=== PATIENT | male | born 1980 | race Caucasian/White ===

== ENCOUNTER 2022-06-27 22:13 | Emergency (ER) | payer MEDICAID, OTHER ==
[~2022-06-27] VITALS: Ht 190.5 cm; Wt 72.7 kg
[2022-06-27 22:42] VITALS: BP 146/82
[2022-06-27] MEDS ORDERED: HYDROcodone-ACET 10/325MG TAB PO ONE (23:45)
[2022-06-28] MEDS ORDERED: TETANUS-DIPTH-ACEL PERTUSSIS 0.5ML SYR Tdap IM ONE (01:30)
[2022-06-28] MEDS ORDERED: CEPH-510 PO (01:31)
[2022-06-28] MEDS ORDERED: IBUP800T26 PO (01:31)
[2022-06-28] MEDS ORDERED: HYDR-4902 PO (01:31)
== END 2022-06-28 01:49 | disposition home or self-care (01) ==
LOC: ER 22:13
DX: S01.422A Laceration with foreign body of left cheek and temporomandibular area, initial encounter (principal); W45.8XXA Other foreign body or object entering through skin, initial encounter; Y93.89 Activity, other specified; Y92.89 Other specified places as the place of occurrence of the external cause; Y99.8 Other external cause status
CPT/HCPCS: 12013; 70450; 70486; 90471; 90715

== ENCOUNTER 2022-09-10 22:13 | Emergency (ER) | payer MEDICAID ==
[~2022-09-10] VITALS: Ht 182.9 cm; Wt 75.0 kg
[~2022-09-10 22:13] MED LIST: CEPH-510 PO; HYDR-4902 PO; IBUP-1455 PO
[2022-09-10 22:19] VITALS: BP 137/89; RESP 20; O2SAT 97
[2022-09-11 00:47] VITALS: PULSE 103
== END 2022-09-11 01:21 | disposition left against medical advice (07) ==
LOC: EDBD 22:13 → ER 22:16
DX: F41.9 Anxiety disorder, unspecified (principal); R94.31 Abnormal electrocardiogram [ECG] [EKG]; Z53.21 Procedure and treatment not carried out due to patient leaving prior to being seen by health care provider
CPT/HCPCS: 93005

== ENCOUNTER 2022-09-11 23:21 | Emergency (ER) | payer MEDICAID ==
[~2022-09-11] VITALS: Ht 175.3 cm; Wt 65.8 kg
[2022-09-11 23:37] VITALS: BP 144/90; PULSE 105; RESP 24; O2SAT 100
== END 2022-09-12 02:01 | disposition home or self-care (01) ==
LOC: EDBD 23:21 → ER 23:21
DX: K29.70 Gastritis, unspecified, without bleeding (principal); F15.90 Other stimulant use, unspecified, uncomplicated; Z79.899 Other long term (current) drug therapy; Z59.00 Homelessness unspecified
CPT/HCPCS: 71045; 74176

== ENCOUNTER 2022-12-20 11:24 | Emergency (ER) | payer MEDICAID ==
[~2022-12-20] VITALS: Ht 188 cm; Wt 73.9 kg
[2022-12-20 12:40] VITALS: BP 101/69; PULSE 103; RESP 18; TEMP 98.5; O2SAT 99
[2022-12-20] MEDS ORDERED: PHEN-922 PO ×2 (12:51)
[2022-12-20] MEDS ORDERED: BACDST PO ×2 (12:51)
[2022-12-20] MEDS ORDERED: IBUP-1456 PO (13:45)
[2022-12-20] MEDS ORDERED: IBUPROFEN 800 MG TAB PO ONE (13:45)
== END 2022-12-20 13:57 | disposition home or self-care (01) ==
LOC: ER 11:24
DX: S93.691A Other sprain of right foot, initial encounter (principal); S86.811A Strain of other muscle(s) and tendon(s) at lower leg level, right leg, initial encounter; F17.210 Nicotine dependence, cigarettes, uncomplicated; F15.90 Other stimulant use, unspecified, uncomplicated; Z79.899 Other long term (current) drug therapy; V89.9XXA Person injured in unspecified vehicle accident, initial encounter; Y93.89 Activity, other specified; Y92.89 Other specified places as the place of occurrence of the external cause; Y99.8 Other external cause status
CPT/HCPCS: 73590; 73630

== ENCOUNTER 2023-06-12 20:35 | Inpatient (IN) | payer MEDICAID ==
[~2023-06-12] VITALS: Ht 182.9 cm; Wt 72.0 kg
[~2023-06-12 20:35] MED LIST changes: +IBUP-1456 PO
[2023-06-12] MEDS: diphenhdrAMINE HCL 50 MG/1 ML VL IM ONE (21:31)
[2023-06-12] MEDS: HALOPERIDOL LACTATE 5 MG/ML INJ VIAL IM ONE (21:31)
[2023-06-12] MEDS: LORazepam 2MG/ML-1ML VIAL ONE ×2 (21:31→21:32)
[2023-06-12] MEDS: HALOPERIDOL LACTATE 5 MG/ML INJ VIAL ONE (21:31)
[2023-06-12] MEDS: LORazepam 2MG/ML-1ML VIAL IM ONE (21:31)
[2023-06-12] MEDS: diphenhdrAMINE HCL 50 MG/1 ML VL ONE ×2 (21:31→21:32)
[2023-06-12 21:36] VITALS: PULSE 105; RESP 20; O2SAT 95
[2023-06-12 22:26] LABS: Basophils # (auto) 0 10 ^3/uL (0-0.2); Basophils % (auto) 0.4 % (0.0-2.0); Eosinophils # (auto) 0 10 ^3/uL (0-0.8); Eosinophils % (auto) 0.3 % (0.0-7.0); Hematocrit 41.8 % (41.0-53.0); Hemoglobin 14.2 g/dL (13.5-17.5); Lymphocytes # (auto) 0.9 10 ^3/uL (0.4-5.4); Lymphocytes % (auto) 7.8 % (10.0-50.0); Mean Corpuscular Hemoglobin 29.4 pg (28.0-32.0); Mean Corpuscular Volume 86.6 fL (80.0-100.0); Monocytes # (auto) 1.2 10 ^3/uL (0-1.3); Monocytes % (auto) 10.5 % (0.0-12.0); Neutrophils # (auto) 9.6 10 ^3/uL (1.6-8.6); Nucleated Red Blood Cells % 0.1 %; Red Blood Cells 4.82 10^6/uL (4.5-5.90); Red Cell Distribution Width 13.8 % (11.8-14.3); White Blood Cell 11.9 10^3/uL (4.4-10.8)
[2023-06-12 22:36] LABS: Acetaminophen < 2.0 UG/ML (10.0-20.0)
[2023-06-12 22:52] LABS: Salicylate < 3.0 mg/dL (2.8-20.0)
[2023-06-12 23:33] LABS: Platelet Estimate Decreased
[2023-06-12 23:33] LABS: Chloride 107 mmol/L (98-107); Sodium 140 mmol/L (136-145)
[2023-06-12 23:36] LABS: Calcium 9.5 mg/dL (8.5-10.1)
[2023-06-12 23:41] LABS: Alkaline Phosphatase 88 U/L (46-116); Blood Alcohol < 3.0 mg/dL (<10); Glucose 99 mg/dL (74-106)
[2023-06-12 23:43] LABS: Aspartate Aminotransferase 67 U/L (13-40)
[2023-06-12 23:44] LABS: INR 1.04 (0.9-1.15); Partial Thromboplastin Time 23.6 SEC (24.5-34.5)
[2023-06-13 00:03] LABS: Alanine Aminotransferase 24 U/L (7-40); Albumin 4.5 g/dL (3.2-4.8); Anion Gap 9 (5-15); Bilirubin, Total 1.1 mg/dL (0.2-1.0); Blood Urea Nitrogen 18 mg/dL (9-23); Carbon Dioxide 24 mmol/L (20-30); Potassium 3.7 mmol/L (3.5-5.1); Total Protein 7.2 g/dL (5.7-8.2)
[2023-06-13 00:15] LABS: Lipase 37 U/L (12-53)
[2023-06-13] MEDS: LORazepam 2MG/ML-1ML VIAL IM ONE (01:17)
[2023-06-13] MEDS: diphenhdrAMINE HCL 50 MG/1 ML VL IM ONE (01:17)
[2023-06-13 03:48] LABS: Urine Bacteria None Seen /hpf (None Seen)
[2023-06-13 04:07] LABS: Amphetamine Screen, Urine Pos (NEGATIVE); Barbiturate Scree,Urine Neg (NEGATIVE); Benzodiazephine Screen, Urine Neg (NEGATIVE); Cannabinoid Screen, Urine Pos (NEGATIVE); Cocaine Screen, Urine Neg (NEGATIVE); Opiate Scree,Urine Neg (NEGATIVE); Phencyclidine Screen, Urine Neg (NEGATIVE)
[2023-06-13 04:19] LABS: Urine Blood Negative /uL (Negative); Urine Clarity Clear (Clear); Urine Color Yellow (Yellow); Urine Mucus FEW (None Seen); Urine Protein, UAD 1+ (Negative); Urine Specific Gravity 1.035 (1.001-1.035); Urine Urobilinogen Normal (Negative); Urine WBC 1 /hpf (0 - 3); Urine pH 5.5 (5.0-9.0)
[2023-06-13] MEDS ORDERED: LORazepam 2MG/ML-1ML VIAL IV PRN (05:45)
[2023-06-13] MEDS ORDERED: ONDANSETRON HCL 4 MG/2 ML VIAL IV PRN (05:45)
[2023-06-13] MEDS ORDERED: TEMAZEPAM 15 MG CAP PO PRN (05:45)
[2023-06-13 07:45] VITALS: PULSE 100; RESP 15; O2SAT 95
[2023-06-13 19:30] VITALS: PULSE 109; O2SAT 96
[2023-06-14 01:00] VITALS: BP 118/74; PULSE 66; RESP 20; TEMP 97.6; O2SAT 92
[2023-06-14 04:58] VITALS: BP 104/55; PULSE 90; RESP 18; TEMP 98; O2SAT 95
[2023-06-14 06:32] LABS: Anion Gap 6 (5-15); Carbon Dioxide 27 mmol/L (20-30); Chloride 105 mmol/L (98-107); Potassium 3.8 mmol/L (3.5-5.1); Sodium 138 mmol/L (136-145)
[2023-06-14 06:33] LABS: Calcium 9.5 mg/dL (8.7-10.4)
[2023-06-14 06:38] LABS: BUN/Creatinine Ratio 15.5 (10.0-20.0); Blood Urea Nitrogen 15 mg/dL (9-23); Glucose 91 mg/dL (74-106)
[2023-06-14 08:25] VITALS: PULSE 105; RESP 20; O2SAT 99
[2023-06-14 09:00] VITALS: BP 130/79; PULSE 105; RESP 20; TEMP 98.1; O2SAT 99
[2023-06-14 10:04] VITALS: BP 130/79; PULSE 105; RESP 20; TEMP 98.1; O2SAT 99
== END 2023-06-14 10:37 | disposition home or self-care (01) | DRG 812 ==
LOC: ER 20:35 → EDBD 20:35 → OVERFLOW 06-13 05:33 → CENTRAL 06-13 23:51
PROVIDERS: ADMIT Nurse Practitioner; ATTEND Family Medicine
DX: T50.991A Poisoning by other drugs, medicaments and biological substances, accidental (unintentional), initial encounter (principal); G92.9 Unspecified toxic encephalopathy; F15.10 Other stimulant abuse, uncomplicated; F17.210 Nicotine dependence, cigarettes, uncomplicated; F19.10 Other psychoactive substance abuse, uncomplicated; Z59.00 Homelessness unspecified; Y92.89 Other specified places as the place of occurrence of the external cause; Z79.899 Other long term (current) drug therapy
CPT/HCPCS: 36415; 70450; 71045; 80048; 80053; 80307; 80320; 80329; 81001; 83605; 83690; 84484; 85025; 85379; 85610; 85730; 87040; 93005; 96372; G0378

== ENCOUNTER 2023-06-22 23:32 | Emergency (ER) | payer MEDICAID | END 2023-06-22 23:40 | disposition left against medical advice (07) | LOC: ER 23:32 | DX: R07.89 Other chest pain (principal); Z53.21 Procedure and treatment not carried out due to patient leaving prior to being seen by health care provider ==

== ENCOUNTER 2023-06-24 14:39 | Emergency (ER) | payer MEDICAID ==
[~2023-06-24] VITALS: Ht 190.5 cm; Wt 75.8 kg
[2023-06-24 14:58] LABS: Urine Bacteria None Seen /hpf (None Seen); Urine WBC None Seen /hpf (0 - 3)
[2023-06-24] MEDS: SODIUM CHLORIDE 0.9% 1,000 ML IV ONE (15:13)
[2023-06-24] MEDS: LORazepam 2MG/ML-1ML VIAL IM ONE (15:13)
[2023-06-24 15:15] LABS: Urine Blood Negative /uL (Negative); Urine Clarity Clear (Clear); Urine Color Colorless (Yellow); Urine Protein, UAD Negative (Negative); Urine Specific Gravity 1.001 (1.001-1.035); Urine Urobilinogen Normal (Negative); Urine pH 6.5 (5.0-9.0)
[2023-06-24 15:38] VITALS: BP 103/84; PULSE 86; RESP 19; TEMP 98.2; O2SAT 98
[2023-06-24 15:40] LABS: Chloride 106 mmol/L (98-107); Potassium 3.1 mmol/L (3.5-5.1); Sodium 139 mmol/L (136-145)
[2023-06-24 15:41] LABS: Anion Gap 11 (5-15); Carbon Dioxide 22 mmol/L (20-30)
[2023-06-24 15:42] LABS: Calcium 10.4 mg/dL (8.7-10.4)
[2023-06-24 15:42] LABS: Basophils # (auto) 0 10 ^3/uL (0-0.2); Basophils % (auto) 0.4 % (0.0-2.0); Eosinophils # (auto) 0 10 ^3/uL (0-0.8); Eosinophils % (auto) 0.2 % (0.0-7.0); Hematocrit 47.5 % (41.0-53.0); Lymphocytes # (auto) 1.7 10 ^3/uL (0.4-5.4); Lymphocytes % (auto) 15.8 % (10.0-50.0); Mean Corpuscular Hemoglobin 29.3 pg (28.0-32.0); Mean Corpuscular Hgb Conc. 33.6 g/dL (32.0-36.0); Mean Corpuscular Volume 87.1 fL (80.0-100.0); Monocytes # (auto) 0.6 10 ^3/uL (0-1.3); Monocytes % (auto) 5.2 % (0.0-12.0); Neutrophils # (auto) 8.5 10 ^3/uL (1.6-8.6); Neutrophils % (auto) 78.4 % (37.0-80.0); Nucleated Red Blood Cells % 0.1 %; Red Blood Cells 5.45 10^6/uL (4.5-5.90); Red Cell Distribution Width 13.6 % (11.8-14.3); White Blood Cell 10.8 10^3/uL (4.4-10.8)
[2023-06-24 15:45] LABS: Amphetamine Screen, Urine Pos (NEGATIVE); Barbiturate Scree,Urine Neg (NEGATIVE); Benzodiazephine Screen, Urine Neg (NEGATIVE); Cannabinoid Screen, Urine Neg (NEGATIVE); Cocaine Screen, Urine Neg (NEGATIVE); Opiate Scree,Urine Neg (NEGATIVE); Phencyclidine Screen, Urine Neg (NEGATIVE)
[2023-06-24 15:47] LABS: BUN/Creatinine Ratio 13.1 (10.0-20.0); Blood Urea Nitrogen 16 mg/dL (9-23); Glucose 137 mg/dL (74-106)
[2023-06-24] MEDS: KETOROLAC TROMETH 60MG/2ML VIAL IM ONE (17:10)
[2023-06-24] MEDS: LORazepam 2MG/ML-1ML VIAL IV ONE (17:52)
== END 2023-06-24 18:30 | disposition left against medical advice (07) ==
LOC: ER 14:39
DX: R06.02 Shortness of breath (principal); F15.10 Other stimulant abuse, uncomplicated; R41.82 Altered mental status, unspecified; F17.210 Nicotine dependence, cigarettes, uncomplicated; Z59.00 Homelessness unspecified; Z79.899 Other long term (current) drug therapy
CPT/HCPCS: 36415; 80048; 80307; 81001; 82962; 84484; 96361; 96372; 96374; 99284; J1885; J2060; J7030